=== PATIENT | female | born 1985 | race Caucasian/White ===

== ENCOUNTER 2021-02-13 02:20 | Inpatient (IN) | payer OTHER ==
[2021-02-13] VITALS (21 sets, daily range): BP systolic 107–163; BP diastolic 65–89; PULSE 75–106; TEMP 97.7–99
[~2021-02-13] VITALS: Ht 154.9 cm; Wt 65.9 kg
--- NOTE | 2021-02-13 02:30 | NUR ---
0230- Patient wheeled onto unit with by her side. Patient is a at 40.1 who is attempting a . She is a patient of Dr. Olivier. She presents to the unit with contractions about 4 minutes apart, per the patient since about 0100. Patient and spouse orientated to room and changed into clean gown. 0235- EFM and TOCO on and tracing. Vitals taken. Assessment completed. 0245- SVE, /-2. Discussed plan of care and probable admit with patient and spouse and answered their questions. 0255- Dr. Keene called and notified. See phsyician's note. 0300- Consents signed and patient admitted to unit. 0315- IV started, labs drawn, IV flushed with no problems, taped up and saline locked at this time per patients request.
[2021-02-13] MEDS ORDERED: PRENATAL TABLET PO (04:01)
[2021-02-13 04:03] LABS: BASO % 0.3 % (0.0-2.0); EOS # 0.2 (0.0-0.7); EOS % 1.1 % (0-4.0); GRAN # 10.7 (1.4-6.5); GRAN % 81.3 % (42.2-75.2); HEMATOCRIT 40.1 % (37.0-47.0); HEMOGLOBIN 13.6 g/dl (12.5-16.0); LYMPH # 1.4 (1.2-3.4); LYMPH % 10.4 % (20.0-51.0); MEAN CELL VOLUME 91 fl (80.0-100.0); MEAN CORPUSCULAR HEMOGLOBIN 31 pg (27.0-31.0); MEAN CORPUSCULAR HGB CONC 34 g/dl (33.0-37.0); MEAN PLATELET VOLUME 9.8 fl (7.4-10.4); MONO # 0.9 (0.1-0.6); MONO % 6.5 % (1.7-9.3); PLATELET COUNT 281 K/mm3 (130-400); RED BLOOD COUNT 4.42 M/mm3 (4.10-5.30); REDCELL DISTRIBUTION WIDTH-CV 12.3 % (11.5-14.5)
--- NOTE | 2021-02-13 07:10 | NUR ---
Pt sitting up on the edge of the bed. SPO2 monitor started. EFM intermittently tracing maternal HR.
--- NOTE | 2021-02-13 07:40 | NUR ---
EFM intermittently tracing maternal HR as coorelates with SPO2 monitor. This RN remains at the bedside.
--- NOTE | 2021-02-13 07:59 | NUR ---
Dr. Keene at the bedside for evaluation.
--- NOTE | 2021-02-13 08:35 | NUR ---
0835- Dr. Keene at the bedside. 0836- SVE AL/100/+1 with AROM for clear fluid per Dr. Keene.
--- NOTE | 2021-02-13 08:45 | NUR ---
0845- Dr. Keene remains at the bedside. Pt set up for delivery. Nursery RN called to the bedside. 0847- Pushing started. 0900- EFM intermittently tracing maternal HR. Frequent attempts to adjust EFM. 0922- of viable male . placed on mom's abdomen. Cords clamped and cut. Care of the given to nursery RN at the bedside. 09- of placenta. Pitocin started at 333ml/hr per order and protocol. Fundus firm and lochia WNL.
--- NOTE | 2021-02-13 11:30 | NUR ---
Pt up to the bathroom with standby assist and without complications. Pt was not able to void. Nani-care done. Pt transferred to room 218 via wheelchair. Assisted pt back to bed. Oriented to room, bed and call light within reach. Plan of care reviewed with pt.
[2021-02-14 07:56] VITALS: BP 104/67; PULSE 90; TEMP 97.3
[2021-02-14] MEDS ORDERED: IBU600 MG PO (09:34)
[2021-02-14 11:30] VITALS: BP 120/72; PULSE 85; TEMP 98.2
--- NOTE | 2021-02-14 12:15 | NUR ---
Substation Designer offered congrats to patient while family was in room. A blessing prayer was said.
== END 2021-02-14 12:10 | disposition home or self-care (01) | DRG 768 ==
LOC: LDRO 02:20 → LDR 02:59 → EDBD 02:59 → LDR 03:00 → OB 12:22
PROVIDERS: ADMIT Obstetrics & Gynecology
PROC: 10E0XZZ Delivery of Products of Conception, External Approach (ICD-10-PCS; principal; 2021-02-13)
PROC: 0DQR0ZZ Repair Anal Sphincter, Open Approach (ICD-10-PCS; 2021-02-13)
PROC: 10907ZC Drainage of Amniotic Fluid, Therapeutic from Products of Conception, Via Natural or Artificial Opening (ICD-10-PCS; 2021-02-13)
DX: O48.0 Post-term pregnancy (principal); Z37.0 Single live birth; O70.20 Third degree perineal laceration during delivery, unspecified; O99.344 Other mental disorders complicating childbirth; O99.62 Diseases of the digestive system complicating childbirth; F41.9 Anxiety disorder, unspecified; K58.9 Irritable bowel syndrome, unspecified; M41.9 Scoliosis, unspecified; O34.211 Maternal care for low transverse scar from previous cesarean delivery; Z3A.40 40 weeks gestation of pregnancy
CPT/HCPCS: J2590